=== PATIENT | male | born 1995 | race Two or more races ===

== ENCOUNTER 2017-06-22 17:02 | Emergency (ER) | payer OTHER ==
[~2017-06-22] VITALS: Ht 180.3 cm; Wt 75.0 kg
[2017-06-22] MEDS ORDERED: ASPI325T PO (17:20)
[2017-06-22] MEDS ORDERED: TYLE325T5 PO (17:20)
[2017-06-22] MEDS ORDERED: IBUP200C10 PO (17:20)
--- NOTE | 2017-06-22 19:20 | REPUSA ---
HISTORY: Left testicular pain and question of torsion. TECHNIQUE: Scrotal ultrasound examination with color flow Doppler imaging. FINDINGS: Right testis measures 4.3 x 2.3 x 2.5 cm with normal Doppler vascularity and no pathologic mass seen. Right epididymal head measures 7.2 mm. Left testis measures 4.1 x 2.4 x 2.4 cm with normal Doppler vascularity and no pathologic mass seen. Left epididymal head measures 6.8 mm. Left varicocele is demonstrated with Valsalva maneuver and co derrick flow imaging. IMPRESSION: 1. No evidence of testicular mass lesion or torsion. 2. Left varicocele noted. 3. No other pathologic scrotal mass or abnormal fluid collection seen. .
[2017-06-22 19:23] VITALS: BP 119/69
== END 2017-06-22 19:38 | disposition home or self-care (01) ==
LOC: M ED 17:02
DX: I86.1 Scrotal varices (principal)

== ENCOUNTER 2017-10-30 12:41 | Day surgery (SDC) | payer OTHER ==
[2017-10-30] MEDS ORDERED: ceFAZolin 2 GM/D5W 50 ML IV BAG (J0690 PER 500MG) As Ordered (12:55)
[2017-10-30] MEDS: LR 1,000 ML IV (13:22)
[2017-10-30] MEDS ORDERED: LIDOCAINE 2% INJ 100 MG/5 ML SDV (FOR ANES.) As Ordered ×2 (16:17→18:54)
[2017-10-30] MEDS ORDERED: dexameTHASONE 4 MG/ML 1ML VIAL (J1100) As Ordered (16:17)
[2017-10-30] MEDS ORDERED: fentaNYL 100 MCG/2 ML INJECTION (J3010) As Ordered (16:17)
[2017-10-30] MEDS ORDERED: PROPOFOL 200 MG/20 ML VIAL As Ordered (16:17)
[2017-10-30] MEDS ORDERED: MIDAZOLAM INJ 2 MG/2 ML VIAL (J2250) As Ordered (16:17)
[2017-10-30] MEDS ORDERED: ONDANSETRON 4MG/2ML VIAL (J2405) As Ordered (16:17)
[2017-10-30] MEDS ORDERED: KETOROLAC 60 MG/2 ML VIAL (J1885) As Ordered (16:18)
[2017-10-30] MEDS ORDERED: DESFLURANE 240 ML INHALANT As Ordered (19:05)
[2017-10-30] MEDS ORDERED: SEVOFLURANE INHAL SOLN 250 ML BTL As Ordered (19:07)
[2017-10-30] MEDS: LIDOCAINE 2% MDV 20 ML VIAL As Ordered (19:51)
[2017-10-30] MEDS: BUPIVACAINE HCL 0.25% 10 ML VIAL As Ordered (19:51)
[2017-10-30] MEDS ORDERED: LR 1,000 ML IV (20:15)
[2017-10-30] MEDS ORDERED: HYDROmorphone HCL 1 MG/ML SYRINGE (J1170) IV (20:15)
[2017-10-30] MEDS ORDERED: ONDANSETRON 4MG/2ML VIAL (J2405) IV (20:15)
[2017-10-30] MEDS ORDERED: fentaNYL 100 MCG/2 ML INJECTION (J3010) IV (20:15)
[2017-10-30] MEDS: PERCOCET 5MG/325MG TAB PO (20:37)
== END 2017-10-30 22:15 | disposition home or self-care (01) ==
LOC: M SDC 12:41
DX: I86.1 Scrotal varices (principal); M94.0 Chondrocostal junction syndrome [Tietze]
CPT/HCPCS: 55530

== ENCOUNTER 2017-12-25 17:02 | Inpatient (IN) | payer OTHER ==
[2017-12-25] MEDS: NS 1,000 ML IV ×3 (17:50→22:35)
[2017-12-25 18:01] LABS: BASO % 0.2 % (0.0-1.0); EOS % 0.2 % (0.0-3.0); HEMATOCRIT 45.5 % (42.0-52.0); HEMOGLOBIN 15.5 g/dl (14.0-18.0); IMMATURE GRANULOCYTE % 0.2 % (0-3.0); LYMPH # 0.3 10^3/uL (1.5-6.5); LYMPH % 3.6 % (24.0-44.0); MEAN CORPUSCULAR HEMOGLOBIN 30.4 pg (27.0-33.0); MEAN CORPUSCULAR HGB CONC 34.1 g/dl (32.0-36.5); MEAN CORPUSCULAR VOLUME 89.2 fl (80.0-96.0); MONO # 0.5 10^3/uL (0.0-0.8); NEUTROPHILS # 8.4 10^3/uL (1.8-7.7); NEUTROPHILS % 90.8 % (36.0-66.0); PLATELET COUNT, AUTOMATED 281 10^3/uL (150-450); RED CELL DISTRIBUTION WIDTH 13.7 % (11.5-14.5); WHITE BLOOD COUNT 9.2 10^3/uL (4.0-10.0)
[2017-12-25 18:14] LABS: KETONE, URINE AUTO RFX 2+ mg/dL (NEGATIVE); LEUKOCYTE ESTERASE UR AUTO RFX NEGATIVE (NEGATIVE); NITRITE, URINE AUTO RFX NEGATIVE (NEGATIVE); RBC, URINE AUTO RFX 2 /HPF (0-3); SPECIFIC GRAVITY UR AUTO RFX 1.026 (1.002-1.035); SQUAM EPITHELIAL CELL UR AURFX 0 /HPF (0-6); WBC, URINE AUTO RFX 0 /HPF (0-3)
[2017-12-25 18:17] LABS: INR 1.15; PROTHROMBIN TIME 14.9 SECONDS (12.4-14.5)
[2017-12-25 18:24] LABS: AMMONIA 19 uMOL/L (<32)
[2017-12-25 18:26] LABS: LACTIC ACID SEPSIS PROTOCOL 1.2 MMOL/L (0.4-2.0)
[2017-12-25 18:36] LABS: ALKALINE PHOSPHATASE 108 U/L (45-117); ALT/SGPT 55 U/L (12-78); AMYLASE 37 U/L (25-115); AST/SGOT 64 U/L (7-37); BILIRUBIN,DIRECT 0.4 MG/DL (0.0-0.2); BILIRUBIN,TOTAL 1.5 MG/DL (0.2-1.0); BLOOD UREA NITROGEN 17 MG/DL (7-18); C REACTIVE PROTEIN QUANTITATIV 1.05 MG/DL (0.00-0.30); CALCIUM LEVEL 9.2 MG/DL (8.5-10.1); CARBON DIOXIDE LEVEL 24 MEQ/L (21-32); CHLORIDE LEVEL 102 MEQ/L (98-107); CREATININE FOR GFR 0.99 MG/DL (0.70-1.30); GLUCOSE, FASTING 80 MG/DL (70-100); POTASSIUM SERUM 3.8 MEQ/L (3.5-5.1); TROPONIN I < 0.02 NG/ML (< 0.10)
[2017-12-25 18:45] LABS: CK-MB VALUE MASS 7.1 NG/ML (0.0-3.6); CPK CREATINE PHOSPHOKINASE 1563 U/L (39-308); MB/CK RELATIVE INDEX 0.45 (< OR =4); THYROID STIMULATING HORMONE 0.544 uIU/ML (0.463-3.98)
[2017-12-25 18:47] LABS: ALBUMIN 4.7 GM/DL (3.2-5.2); ALBUMIN/GLOBULIN RATIO 1.42 (1.00-1.93); ANION GAP 11 MEQ/L (8-16); SODIUM LEVEL 137 MEQ/L (136-145)
[2017-12-25] MEDS: IBUPROFEN 800 MG TAB PO (19:41)
[2017-12-25] MEDS ORDERED: ONDANSETRON 4 MG TAB (S0181) PO (22:15)
[2017-12-25] MEDS ORDERED: BISACODYL 5 MG TAB PO (22:15)
[2017-12-25 23:49] LABS: CPK CREATINE PHOSPHOKINASE 795 U/L (39-308); TROPONIN I < 0.02 NG/ML (< 0.10)
[2017-12-25 23:50] LABS: CK-MB VALUE MASS 3.1 NG/ML (0.0-3.6); MB/CK RELATIVE INDEX 0.38 (< OR =4)
[2017-12-26] MEDS: NS 1,000 ML IV ×2 (03:14→11:55)
[2017-12-26] MEDS: ACETAMINOPHEN TAB 650MG DOSE (2X325MG) PO ×2 (04:55→11:55)
[2017-12-26 06:08] LABS: AMPHETAMINES LEVEL URINE NEGATIVE (NEGATIVE); BARBITURATES URINE NEGATIVE (NEGATIVE); BENZODIAZEPINES URINE NEGATIVE (NEGATIVE); CANNABINOIDS URINE NEGATIVE (NEGATIVE); COCAINE METABOLITE URINE NEGATIVE (NEGATIVE); METHADONE URINE NEGATIVE (NEGATIVE); OPIATES URINE NEGATIVE (NEGATIVE); PHENCYCLIDINE URINE NEGATIVE (NEGATIVE)
[2017-12-26 07:21] LABS: HEMATOCRIT 34.5 % (42.0-52.0); MEAN CORPUSCULAR HEMOGLOBIN 30.4 pg (27.0-33.0); MEAN CORPUSCULAR HGB CONC 33.6 g/dl (32.0-36.5); MEAN CORPUSCULAR VOLUME 90.6 fl (80.0-96.0); PLATELET COUNT, AUTOMATED 214 10^3/uL (150-450); RED BLOOD COUNT 3.81 10^6/uL (4.30-6.10); RED CELL DISTRIBUTION WIDTH 13.9 % (11.5-14.5); WHITE BLOOD COUNT 5.4 10^3/uL (4.0-10.0)
[2017-12-26 07:25] LABS: HEMOGLOBIN 11.6 g/dl (14.0-18.0)
[2017-12-26 07:44] LABS: ANION GAP 7 MEQ/L (8-16); BLOOD UREA NITROGEN 14 MG/DL (7-18); CALCIUM LEVEL 7.6 MG/DL (8.5-10.1); CARBON DIOXIDE LEVEL 23 MEQ/L (21-32); CHLORIDE LEVEL 111 MEQ/L (98-107); CPK CREATINE PHOSPHOKINASE 581 U/L (39-308); CREATININE FOR GFR 0.82 MG/DL (0.70-1.30); GLUCOSE, FASTING 90 MG/DL (70-100); PHOSPHORUS LEVEL 2.2 MG/DL (2.5-4.9); POTASSIUM SERUM 3.8 MEQ/L (3.5-5.1); SODIUM LEVEL 141 MEQ/L (136-145); TROPONIN I < 0.02 NG/ML (< 0.10)
[2017-12-26 07:45] LABS: CK-MB VALUE MASS 2.3 NG/ML (0.0-3.6); MB/CK RELATIVE INDEX 0.39 (< OR =4)
[2017-12-26] MEDS: ENOXAPARIN 40 MG/0.4 ML SYRINGE (J1650) SC (11:19)
[2017-12-26 15:06] LABS: CONTROL LINE MONO INT CTR LINE PRESENT; MONO SCRN NEGATIVE (NEGATIVE)
[2017-12-26 15:13] LABS: CK-MB VALUE MASS 2.2 NG/ML (0.0-3.6); CPK CREATINE PHOSPHOKINASE 496 U/L (39-308); MB/CK RELATIVE INDEX 0.44 (< OR =4); TROPONIN I < 0.02 NG/ML (< 0.10)
[2017-12-26] MEDS: SLF 3 ML SYR IV (21:00)
[2017-12-27] MEDS: SLF 3 ML SYR IV ×3 (05:19→22:00)
[2017-12-27 07:17] LABS: HEMATOCRIT 35.9 % (42.0-52.0); HEMOGLOBIN 12.1 g/dl (14.0-18.0); MEAN CORPUSCULAR HEMOGLOBIN 30.4 pg (27.0-33.0); MEAN CORPUSCULAR HGB CONC 33.7 g/dl (32.0-36.5); MEAN CORPUSCULAR VOLUME 90.2 fl (80.0-96.0); PLATELET COUNT, AUTOMATED 198 10^3/uL (150-450); RED BLOOD COUNT 3.98 10^6/uL (4.30-6.10); RED CELL DISTRIBUTION WIDTH 13.7 % (11.5-14.5); WHITE BLOOD COUNT 4.2 10^3/uL (4.0-10.0)
[2017-12-27 07:34] LABS: ALBUMIN 3.1 GM/DL (3.2-5.2); ALBUMIN/GLOBULIN RATIO 1.03 (1.00-1.93); ALKALINE PHOSPHATASE 72 U/L (45-117); ALT/SGPT 30 U/L (12-78); ANION GAP 9 MEQ/L (8-16); AST/SGOT 18 U/L (7-37); BILIRUBIN,DIRECT 0.1 MG/DL (0.0-0.2); BILIRUBIN,TOTAL 0.4 MG/DL (0.2-1.0); BLOOD UREA NITROGEN 6 MG/DL (7-18); CALCIUM LEVEL 8.1 MG/DL (8.5-10.1); CARBON DIOXIDE LEVEL 21 MEQ/L (21-32); CHLORIDE LEVEL 110 MEQ/L (98-107); CREATININE FOR GFR 0.78 MG/DL (0.70-1.30); GLUCOSE, FASTING 86 MG/DL (70-100); POTASSIUM SERUM 3.5 MEQ/L (3.5-5.1); SODIUM LEVEL 140 MEQ/L (136-145); TOTAL PROTEIN 6.1 GM/DL (6.4-8.2)
[2017-12-27] MEDS: ENOXAPARIN 40 MG/0.4 ML SYRINGE (J1650) SC (10:05)
[2017-12-27] MEDS: VANCOMYCIN ORAL SOL 250MG/5ML ORAL SYRINGE PO (18:20)
[2017-12-27] MEDS: LACTOBACILLUS ACIDOPHILUS CAP (BACID) GT ×2 (18:20→21:59)
[2017-12-27] MEDS: POTASSIUM CHLORIDE 10 MEQ SR TABLET PO (21:59)
[2017-12-28 00:06] LABS: MYOGLOBIN URINE QUANTITATIVE < 2 ng/mL (0-13)
[2017-12-28] MEDS: SLF 3 ML SYR IV ×2 (00:26→05:52)
[2017-12-28] MEDS: VANCOMYCIN ORAL SOL 250MG/5ML ORAL SYRINGE PO ×2 (00:26→05:52)
[2017-12-28 06:56] LABS: HEMATOCRIT 36.9 % (42.0-52.0); HEMOGLOBIN 12.4 g/dl (14.0-18.0); MEAN CORPUSCULAR HGB CONC 33.6 g/dl (32.0-36.5); MEAN CORPUSCULAR VOLUME 89.1 fl (80.0-96.0); PLATELET COUNT, AUTOMATED 224 10^3/uL (150-450); RED BLOOD COUNT 4.14 10^6/uL (4.30-6.10); RED CELL DISTRIBUTION WIDTH 13.6 % (11.5-14.5); WHITE BLOOD COUNT 4.1 10^3/uL (4.0-10.0)
[2017-12-28 07:17] LABS: ANION GAP 8 MEQ/L (8-16); BLOOD UREA NITROGEN 8 MG/DL (7-18); CALCIUM LEVEL 8.3 MG/DL (8.5-10.1); CARBON DIOXIDE LEVEL 24 MEQ/L (21-32); CHLORIDE LEVEL 109 MEQ/L (98-107); CREATININE FOR GFR 0.74 MG/DL (0.70-1.30); GLUCOSE, FASTING 87 MG/DL (70-100); POTASSIUM SERUM 3.7 MEQ/L (3.5-5.1); SODIUM LEVEL 141 MEQ/L (136-145)
[2017-12-28] MEDS: ENOXAPARIN 40 MG/0.4 ML SYRINGE (J1650) SC (08:48)
== END 2017-12-28 09:26 | disposition home or self-care (01) | DRG 372 ==
LOC: M PED 12-26 01:30 → M ED 17:02 → M ED INP 22:38
DX: A04.72 Enterocolitis due to Clostridium difficile, not specified as recurrent (principal); M62.82 Rhabdomyolysis; R79.89 Other specified abnormal findings of blood chemistry; A08.4 Viral intestinal infection, unspecified

== ENCOUNTER → 2018-07-29 | Outpatient (REF) | payer OTHER ==
[2018-07-29 13:59] LABS: AMORPHOUS SEDIMENT SMALL (NEGATIVE); APPEARANCE, URINE CLEAR (CLEAR); BACTERIA, URINE AUTO NEGATIVE (NEGATIVE); BILIRUBIN, URINE AUTO NEGATIVE (NEGATIVE); BLOOD, URINE BLOOD NEGATIVE (NEGATIVE); COLOR, URINE YELLOW (YELLOW); GLUCOSE, URINE (UA) AUTO NEGATIVE (NEGATIVE); KETONE, URINE AUTO NEGATIVE (NEGATIVE); LEUKOCYTE ESTERASE, URINE AUTO NEGATIVE (NEGATIVE); MUCUS, URINE SMALL (NEGATIVE); NITRITE, URINE AUTO NEGATIVE (NEGATIVE); PROTEIN, URINE AUTO 2+ mg/dL (NEGATIVE); RBC, URINE AUTO 0 /HPF (0-3); SPECIFIC GRAVITY URINE AUTO 1.024 (1.002-1.035); SQUAMOUS EPITHELIAL CELL UR AU 0 /HPF (0-6); UROBILINOGEN, URINE AUTO 0.2 mg/dL (0.0-2.0); WBC, URINE AUTO 0 /HPF (0-3)
[2018-07-29 16:06] LABS: CHLAMYDIA DNA AMPLIFICATION NEGATIVE (NEGATIVE); GC DNA AMPLIFICATION NEGATIVE (NEGATIVE)
== END ==
LOC: M SMT 13:28
DX: N50.819 Testicular pain, unspecified (principal)

== ENCOUNTER 2018-11-30 11:05 | Emergency (ER) | payer OTHER ==
[~2018-11-30] VITALS: Ht 180.3 cm; Wt 65.9 kg
[~2018-11-30 11:05] MED LIST: ASPI325T PO; BACT800T5 PO; FIRS50SO PO; IBUP200C25 PO; RISATAB3 GT; RISATAB3 PO; TYLE325T5 PO; TYLE650T35 PO; VANC125C2 PO; VITACHTA PO
[2018-11-30] MEDS ORDERED: NS 1,000 ML IV ONE (12:00)
[2018-11-30] MEDS ORDERED: ONDANSETRON 4MG/2ML VIAL (J2405) IV ONE (12:00)
[2018-11-30 12:32] LABS: BASO % 0.5 % (0.0-1.0); EOS # 0.1 10^3/uL (0.0-0.50); EOS % 1.7 % (0.0-3.0); HEMATOCRIT 45.2 % (42.0-52.0); HEMOGLOBIN 15.3 g/dl (13.5-17.5); LYMPH # 2.2 10^3/uL (1.5-6.5); LYMPH % 34.7 % (24.0-44.0); MEAN CORPUSCULAR HEMOGLOBIN 30.5 pg (27.0-33.0); MEAN CORPUSCULAR HGB CONC 33.8 g/dl (32.0-36.5); MEAN CORPUSCULAR VOLUME 90.2 fl (80.0-96.0); MONO # 0.6 10^3/uL (0.0-0.8); MONO % 8.9 % (0.0-5.0); NEUTROPHILS # 3.4 10^3/uL (1.8-7.7); PLATELET COUNT, AUTOMATED 282 10^3/uL (150-450); RED BLOOD COUNT 5.01 10^6/uL (4.30-6.10); WHITE BLOOD COUNT 6.3 10^3/uL (4.0-10.0)
[2018-11-30 12:45] LABS: ALBUMIN 4.2 GM/DL (3.2-5.2); ALT/SGPT 21 U/L (12-78); AMYLASE 42 U/L (25-115); BILIRUBIN,DIRECT 0.2 MG/DL (0.0-0.2); BILIRUBIN,TOTAL 0.6 MG/DL (0.2-1.0); BLOOD UREA NITROGEN 10 MG/DL (7-18); CALCIUM LEVEL 8.8 MG/DL (8.5-10.1); CARBON DIOXIDE LEVEL 30 MEQ/L (21-32); CHLORIDE LEVEL 104 MEQ/L (98-107); CREATININE FOR GFR 1.01 MG/DL (0.70-1.30); GLOMERULAR FILTRATION RATE > 60.0 (>60); GLUCOSE, FASTING 83 MG/DL (70-100); LIPASE 125 U/L (73-393); POTASSIUM SERUM 4.3 MEQ/L (3.5-5.1); SODIUM LEVEL 140 MEQ/L (136-145); TOTAL PROTEIN 7.6 GM/DL (6.4-8.2)
[2018-11-30] MEDS ORDERED: ONDA4TAB6 PO (13:36)
[2018-11-30 13:44] VITALS: BP 102/55
== END 2018-11-30 13:47 | disposition home or self-care (01) ==
LOC: M ED 11:05
DX: A08.4 Viral intestinal infection, unspecified (principal)
CPT/HCPCS: 80048; 80076; 82150; 83690; 85025; 96361; 96374; 99284; J2405

== ENCOUNTER → 2018-12-09 | Outpatient (CLI) | payer OTHER ==
[~2018-12-09] MED LIST changes: +ONDA4TAB6 PO
[2018-12-09 18:35] LABS: HEMATOCRIT 43.4 % (42.0-52.0); HEMOGLOBIN 14.7 g/dl (13.5-17.5); MEAN CORPUSCULAR HEMOGLOBIN 30.1 pg (27.0-33.0); MEAN CORPUSCULAR HGB CONC 33.9 g/dl (32.0-36.5); MEAN CORPUSCULAR VOLUME 88.8 fl (80.0-96.0); PLATELET COUNT, AUTOMATED 336 10^3/uL (150-450); RED BLOOD COUNT 4.89 10^6/uL (4.30-6.10); WHITE BLOOD COUNT 5.5 10^3/uL (4.0-10.0)
[2018-12-09 18:37] LABS: BLOOD UREA NITROGEN 11 MG/DL (7-18); CALCIUM LEVEL 9.4 MG/DL (8.5-10.1); CARBON DIOXIDE LEVEL 30 MEQ/L (21-32); CHLORIDE LEVEL 105 MEQ/L (98-107); GLOMERULAR FILTRATION RATE > 60.0 (>60); GLUCOSE, FASTING 84 MG/DL (70-100); POTASSIUM SERUM 4.7 MEQ/L (3.5-5.1); SODIUM LEVEL 140 MEQ/L (136-145)
[2018-12-09 18:45] LABS: INR 1.21; PROTHROMBIN TIME 15.5 SECONDS (12.1-14.4)
[2018-12-09 18:46] LABS: PARTIAL THROMBOPLASTIN TIME 32.8 SECONDS (25.4-37.6)
== END ==
LOC: M SMT 13:34
PROVIDERS: ATTEND Urology
DX: Z01.818 Encounter for other preprocedural examination (principal); N50.812 Left testicular pain

== ENCOUNTER 2018-12-15 05:49 | Day surgery (SDC) | payer OTHER ==
[~2018-12-15] VITALS: Ht 180.3 cm; Wt 68.9 kg
[2018-12-15] MEDS ORDERED: LIDOCAINE 1% MDV 20ML VIAL SQ PRN (06:00)
[2018-12-15] MEDS ORDERED: LR 1,000 ML IV ONE (06:00)
[2018-12-15] MEDS ORDERED: BUPIVACAINE HCL 0.25% 30 ML VIAL As Ordered ONE (07:13)
[2018-12-15] MEDS ORDERED: PROPOFOL 200 MG/20 ML VIAL As Ordered ONE ×2 (07:52→08:20)
[2018-12-15] MEDS ORDERED: LIDOCAINE 2% INJ 100 MG/5 ML SDV (FOR ANES.) As Ordered ONE (07:52)
[2018-12-15] MEDS ORDERED: dexameTHASONE 4 MG/ML 1ML VIAL (J1100) As Ordered ONE (07:52)
[2018-12-15] MEDS ORDERED: MIDAZOLAM INJ 2 MG/2 ML VIAL (J2250) As Ordered ONE (07:52)
[2018-12-15] MEDS ORDERED: fentaNYL 250 MCG/5 ML INJECTION (J3010) As Ordered ONE (07:52)
[2018-12-15] MEDS ORDERED: ONDANSETRON 4MG/2ML VIAL (J2405) As Ordered ONE (07:52)
[2018-12-15] MEDS ORDERED: BACITRACIN OINT 30GM As Ordered ONE (08:00)
[2018-12-15] MEDS ORDERED: PERCOCET 5MG/325MG TAB PO PRN (09:00)
[2018-12-15] MEDS ORDERED: LR 1,000 ML IV SCH (09:00)
[2018-12-15] MEDS ORDERED: ONDANSETRON 4MG/2ML VIAL (J2405) IV PRN (09:00)
[2018-12-15] MEDS ORDERED: METOCLOPRAMIDE INJ 10MG/2ML VIAL (J2765) IV PRN (09:00)
[2018-12-15] MEDS ORDERED: MORPHINE 10 MG/ML 1ML VIAL (J2270) IV PRN (09:00)
[2018-12-15] MEDS: fentaNYL 100 MCG/2 ML INJECTION (J3010) IV PRN ×4 (09:30→09:45)
[2018-12-15] MEDS: PERCOCET 5MG/325MG TAB PO PRN ×2 (09:30→10:00)
[2018-12-15 11:15] VITALS: BP 131/74
--- NOTE | 2018-12-15 19:30 | RO ---
DATE OF PROCEDURE: 12/15/2018 PREPROCEDURE DIAGNOSIS: Chronic left testicular pain. POSTPROCEDURE DIAGNOSIS: Chronic left testicular pain. PROCEDURE: Simple left orchiectomy. SURGEON: Dr. Pierce Benavidez. METAL STUD FRAMER: None. ANESTHESIA: General. OPERATIVE INDICATIONS: This is a 23-year-old male who has had chronic left testicular pain for several months. There is no obvious causes identified on the imaging. Several rounds of pain medication and antibiotics have been tried with no improvement in his pain. Given how debilitating the pain is to the patient he requests to have the left testicle removed. DESCRIPTION OF PROCEDURE: Patient was brought to the operating room and general anesthesia was induced. Prophylactic antibiotics were infused. He was then placed in the supine position in preparation for the above listed procedure. At this point approximately a 3-4 cm transverse incision was made over the left hemiscrotum. We then dissected down through the scrotal wall layers. The testicle was then delivered outside of the tunica vaginalis. The spermatic cord was then carefully dissected and then high on the cord a Avis clamp was placed. Just distal to the Avis clamp the cord was into two separate packets and then a clamp was placed on each packet. The spermatic cord was then transected distal to those clamps. At this point 0 Vicryl free ties were placed each packet. Next an 0-Vicryl suture ligature was placed around the more proximal Avis clamp. Once this was done hemostasis was checked and any areas of bleeding were controlled with electrocautery. Once I was satisfied with hemostasis the wound was irrigated. At this point we began closing with a running 2-0 Vicryl suture. The skin was closed with interrupted 2-0 chromic sutures. Bacitracin ointment was applied to all of the incisions and dressings were applied and this marked the conclusion of the procedure. The patient was then awakened from anesthesia and transported to the recovery room in stable condition. ESTIMATED BLOOD LOSS: 5 mL. COMPLICATIONS: None. SPECIMENS: Left testicle. PLAN: The patient will followup in the clinic in a few weeks for postoperative visit. MARQUES
== END 2018-12-15 11:24 | disposition home or self-care (01) ==
LOC: M SDC 05:49
PROVIDERS: ATTEND Urology
DX: N50.812 Left testicular pain (principal); Z79.899 Other long term (current) drug therapy
CPT/HCPCS: 54520; 88305; J0690; J1100; J2250; J2405; J3010

== ENCOUNTER 2019-01-22 17:08 | Emergency (ER) | payer OTHER ==
[~2019-01-22] VITALS: Ht 180.3 cm; Wt 69.2 kg
[~2019-01-22 17:08] MED LIST changes: +ASPI-1 PO; -ASPI325T PO; -VANC125C2 PO; +VANC125C3 PO
[2019-01-22 18:30] LABS: BASO % 0.2 % (0.0-1.0); EOS % 0.6 % (0.0-3.0); HEMATOCRIT 44.3 % (42.0-52.0); LYMPH # 0.7 10^3/uL (1.5-6.5); LYMPH % 13.3 % (24.0-44.0); MEAN CORPUSCULAR HEMOGLOBIN 30.4 pg (27.0-33.0); MEAN CORPUSCULAR HGB CONC 33.9 g/dl (32.0-36.5); MEAN CORPUSCULAR VOLUME 89.7 fl (80.0-96.0); MONO # 0.7 10^3/uL (0.0-0.8); MONO % 13.9 % (0.0-5.0); NEUTROPHILS # 3.8 10^3/uL (1.8-7.7); NEUTROPHILS % 71.8 % (36.0-66.0); PLATELET COUNT, AUTOMATED 257 10^3/uL (150-450); RED BLOOD COUNT 4.94 10^6/uL (4.30-6.10); WHITE BLOOD COUNT 5.3 10^3/uL (4.0-10.0)
[2019-01-22] MEDS ORDERED: ACETAMINOPHEN TAB 650MG DOSE (2X325MG) PO ONE (18:30)
[2019-01-22 19:27] LABS: INFLUENZA A AMPLIFICATION POSITIVE (NEGATIVE); INFLUENZA B AMPLIFICATION NEGATIVE (NEGATIVE)
--- NOTE | 2019-01-22 19:30 | REP ---
CHEST, TWO VIEWS: There is no evidence of acute infiltrate. No pleural effusion is seen. The heart is normal in size. The mediastinal silhouette is unremarkable. The visualized osseous structures are intact. IMPRESSION: No acute pulmonary disease. Electronically Signed by Mook Caicedo MD 01/22/2019 08:44 P
[2019-01-22] MEDS ORDERED: OSEL75CA PO (19:59)
[2019-01-22] MEDS ORDERED: OSELTAMIVIR PHOSPHATE 75 MG CAP (TAMIFLU) PO ONE (20:00)
[2019-01-22] MEDS ORDERED: IBUPROFEN 800 MG TAB PO ONE (20:15)
[2019-01-22 20:20] VITALS: BP 114/57
[2019-01-22 20:38] LABS: BLOOD UREA NITROGEN 14 MG/DL (7-18); CREATININE FOR GFR 1.17 MG/DL (0.70-1.30); GLOMERULAR FILTRATION RATE > 60.0 (>60); GLUCOSE, FASTING 103 MG/DL (70-100)
[2019-01-22 20:39] LABS: ALT/SGPT 20 U/L (12-78); BILIRUBIN,TOTAL 0.5 MG/DL (0.2-1.0); CARBON DIOXIDE LEVEL 27 MEQ/L (21-32); CHLORIDE LEVEL 107 MEQ/L (98-107); POTASSIUM SERUM 3.7 MEQ/L (3.5-5.1); SODIUM LEVEL 139 MEQ/L (136-145)
[2019-01-22 20:40] LABS: ALBUMIN 4.4 GM/DL (3.2-5.2); BILIRUBIN,DIRECT 0.1 MG/DL (0.0-0.2); TOTAL PROTEIN 7.7 GM/DL (6.4-8.2)
== END 2019-01-22 20:22 | disposition home or self-care (01) ==
LOC: M ED 17:08
DX: J09.X2 Influenza due to identified novel influenza A virus with other respiratory manifestations (principal); Z98.890 Other specified postprocedural states

== ENCOUNTER 2019-07-17 04:47 | Emergency (ER) | payer OTHER ==
[~2019-07-17] VITALS: Ht 180.3 cm; Wt 71.8 kg
[~2019-07-17 04:47] MED LIST changes: +OSEL75CA PO
[2019-07-17] MEDS ORDERED: ACETAMINOPHEN TAB 650MG DOSE (2X325MG) PO ONE (06:30)
[2019-07-17] MEDS ORDERED: NS 500 ML IV ONE (06:30)
[2019-07-17 06:41] LABS: BASO % 0.3 % (0.0-1.0); EOS # 0.2 10^3/uL (0.0-0.5); HEMOGLOBIN 13.8 g/dl (13.5-17.5); LYMPH % 9.1 % (24.0-44.0); MEAN CORPUSCULAR HEMOGLOBIN 30.9 pg (27.0-33.0); MEAN CORPUSCULAR HGB CONC 33.7 g/dl (32.0-36.5); MEAN CORPUSCULAR VOLUME 91.9 fl (80.0-96.0); MONO # 1.2 10^3/uL (0.0-0.8); MONO % 10.3 % (0.0-5.0); NEUTROPHILS # 8.9 10^3/uL (1.5-8.5); NEUTROPHILS % 77.9 % (36.0-66.0); PLATELET COUNT, AUTOMATED 199 10^3/uL (150-450); RED BLOOD COUNT 4.46 10^6/uL (4.30-6.10); WHITE BLOOD COUNT 11.5 10^3/uL (4.0-10.0)
[2019-07-17 07:14] LABS: ALBUMIN 3.7 GM/DL (3.2-5.2); ALT/SGPT 18 U/L (12-78); BILIRUBIN,DIRECT 0.3 MG/DL (0.0-0.2); BILIRUBIN,TOTAL 0.8 MG/DL (0.2-1.0); BLOOD UREA NITROGEN 12 MG/DL (7-18); CALCIUM LEVEL 8.7 MG/DL (8.5-10.1); CARBON DIOXIDE LEVEL 28 MEQ/L (21-32); CHLORIDE LEVEL 106 MEQ/L (98-107); CREATININE FOR GFR 1.04 MG/DL (0.70-1.30); GLOMERULAR FILTRATION RATE > 60.0 (>60); GLUCOSE, FASTING 78 MG/DL (70-100); POTASSIUM SERUM 4.3 MEQ/L (3.5-5.1); SODIUM LEVEL 140 MEQ/L (136-145); TOTAL PROTEIN 6.5 GM/DL (6.4-8.2)
[2019-07-17 07:21] LABS: MONO REFLEX EBV COMP NEGATIVE (NEGATIVE)
[2019-07-17] MEDS ORDERED: PENI500T PO (08:23)
[2019-07-17] MEDS ORDERED: PRED20TA PO ×2 (08:23→13:10)
[2019-07-17 08:46] VITALS: BP 128/68
[2019-07-19 00:26] LABS: EBV VIRAL CAPSID AG IgG 77.2 U/mL (0.0-17.9); EBV VIRAL CAPSID AG IgM <36.0 U/mL (0.0-35.9)
== END 2019-07-17 08:47 | disposition home or self-care (01) ==
LOC: M ED 04:47
DX: A38.9 Scarlet fever, uncomplicated (principal)

== ENCOUNTER 2021-04-18 11:20 | Emergency (ER) | payer OTHER ==
[~2021-04-18] VITALS: Ht 180.3 cm; Wt 80.1 kg
[~2021-04-18 11:20] MED LIST changes: +ACET650T61 PO; +PENI500T PO; +PRED20TA PO; -TYLE650T35 PO
[2021-04-18 15:41] LABS: BASO % 0.6 % (0.0-1.0); EOS # 0.1 10^3/uL (0.0-0.5); EOS % 2.1 % (0.0-3.0); HEMATOCRIT 47.7 % (42.0-52.0); HEMOGLOBIN 15.8 g/dl (13.5-17.5); LYMPH # 2.3 10^3/uL (1.5-5.0); LYMPH % 37.4 % (24.0-44.0); MEAN CORPUSCULAR HEMOGLOBIN 29.9 pg (27.0-33.0); MEAN CORPUSCULAR HGB CONC 33.1 g/dl (32.0-36.5); MEAN CORPUSCULAR VOLUME 90.3 fl (80.0-96.0); MONO # 0.4 10^3/uL (0.0-0.8); MONO % 6.1 % (2.0-8.0); NEUTROPHILS # 3.4 10^3/uL (1.5-8.5); NEUTROPHILS % 53.6 % (36.0-66.0); PLATELET COUNT, AUTOMATED 309 10^3/uL (150-450); RED BLOOD COUNT 5.28 10^6/uL (4.30-6.10); WHITE BLOOD COUNT 6.3 10^3/uL (4.0-10.0)
[2021-04-18] MEDS ORDERED: KETOROLAC 30 MG/ML 1ML VIAL IV ONE (15:55)
[2021-04-18] MEDS ORDERED: NS 1,000 ML IV ONE (15:55)
[2021-04-18 16:17] LABS: ALBUMIN 4.6 GM/DL (3.2-5.2); ALT/SGPT 28 U/L (12-78); BILIRUBIN,DIRECT 0.1 MG/DL (0.0-0.2); BILIRUBIN,TOTAL 0.6 MG/DL (0.2-1.0); BLOOD UREA NITROGEN 12 MG/DL (7-18); CALCIUM LEVEL 9.3 MG/DL (8.5-10.1); CARBON DIOXIDE LEVEL 27 MEQ/L (21-32); CHLORIDE LEVEL 105 MEQ/L (98-107); CREATININE FOR GFR 1.05 MG/DL (0.70-1.30); GLOMERULAR FILTRATION RATE > 60.0 (>60); GLUCOSE, FASTING 77 MG/DL (70-100); LIPASE 153 U/L (73-393); POTASSIUM SERUM 4.3 MEQ/L (3.5-5.1); SODIUM LEVEL 137 MEQ/L (136-145); TOTAL PROTEIN 7.8 GM/DL (6.4-8.2)
[2021-04-18] MEDS ORDERED: ISOVUE-370 76% 100ML VIAL As Ordered ONE (16:26)
--- NOTE | 2021-04-18 16:52 | REP ---
INDICATION: RLQ abd pain. COMPARISON: None TECHNIQUE: Axial contrast-enhanced images from the lung bases to the pubic symphysis using 100 cc Isovue 370 intravenous contrast material. Coronal and sagittal reformations obtained. This CT examination was performed using the following dose reduction techniques: Automated exposure control, adjustment of mA and/or kv according to the patient's size, and the use of iterative reconstruction technique. FINDINGS: Lung bases are clear. Visualized heart and pericardium normal. Liver, spleen, pancreas, gallbladder, bilateral adrenal glands and kidneys are normal. The enteric system including stomach, small, and large bowel appears normal. No evidence for obstruction or acute inflammatory process. Normal terminal ileum and appendix are identified in the right lower quadrant. Pelvis demonstrates normal bladder and age-appropriate prostate/seminal vesicles. Scattered sigmoid diverticulosis noted without acute diverticulitis. No ascites. No free air. No intraperitoneal or retroperitoneal adenopathy. Abdominal aorta and vasculature appear normal. Musculoskeletal structures are intact and without acute osseous abnormality. IMPRESSION: No acute abdominopelvic pathology appreciated. <Electronically signed by Zaheer Long > 04/18/21 [id number]
[2021-04-18 17:09] VITALS: BP 117/68
== END 2021-04-18 18:02 | disposition home or self-care (01) ==
LOC: M ED 11:20
DX: R10.31 Right lower quadrant pain (principal); Z98.890 Other specified postprocedural states
CPT/HCPCS: 74177; 80048; 80076; 81001; 83690; 85025; 96374; 99284; J1885; Q9967